=== PATIENT | female | born 1945 | race Caucasian/White ===

== ENCOUNTER 2017-05-21 16:02 | Emergency (ER) | payer OTHER ==
[~2017-05-21] VITALS: Ht 144.8 cm; Wt 92.5 kg
[~2017-05-21 16:02] MED LIST: ACTOS15 MG PO; ASPIRIN81 M2 PO; CITALOPRAM HBR20 M1 PO; GLIPIZIDE5 M1 PO; NORTRIPTYLINE H25 MG PO; PREVACID30 MG PO; QUINAPRIL HCL40 MG PO; SIMVASTATIN80 M1 PO
[2017-05-21 16:27] LABS: BASOPHIL (%) 0.5 % (0-1); BASOPHIL COUNT 0.1 K/uL (0-0.1); EOSINOPHIL (%) 1.6 % (0-5); EOSINOPHIL COUNT 0.2 K/uL (0-0.3); HEMATOCRIT 43.6 % (36.0-46.0); HEMOGLOBIN 14.2 G/DL (11.9-15.5); IMMATURE GRANULOCYTE (%) 0.5 % (0.0-0.7); LYMPHOCYTE (%) 17.7 % (15-42); LYMPHOCYTE COUNT 1.7 K/uL (1.0-2.8); MCH 27.7 PG (29.0-34.0); MCHC 32.6 G/DL (30.0-36.0); MONOCYTE (%) 6.8 % (3-12); MONOCYTE COUNT 0.6 K/uL (0-0.8); NEUTROPHIL (%) 72.9 % (45-76); NEUTROPHIL COUNT 6.9 K/uL (1.8-6.4); PLATELET COUNT 264 K/uL (156-360); RBC DIS.WIDTH-SD 43.7 % (39-53); RED BLOOD COUNT 5.13 M/uL (3.80-5.20); WHITE BLOOD COUNT 9.4 K/uL (4.1-10.2)
[2017-05-21 16:34] LABS: ALBUMIN 3.7 g/dL (3.2-4.8); CHLORIDE 102 mEq/L (99-109); POTASSIUM 4.2 mEq/L (3.7-5.4); SODIUM 137 mEq/L (136-147)
[2017-05-21 16:35] LABS: MAGNESIUM 1.8 mg/dL (1.3-2.7)
[2017-05-21 16:37] LABS: GLUCOSE 180 mg/dL (70-99); TOTAL PROTEIN 6.3 g/dL (6.4-8.3)
[2017-05-21 16:39] LABS: TOTAL BILIRUBIN 0.5 mg/dL (0.0-1.0)
[2017-05-21 16:40] LABS: ALKALINE PHOSPHATASE 89 IU/L (3-129); CREATININE 1.1 mg/dL (0.6-1.3); GFR ESTIMATE (CALCULATED) 52 mL/min/
[2017-05-21 16:41] LABS: UREA NITROGEN (BUN) 15 mg/dL (9-23)
[2017-05-21 16:42] LABS: AST (GOT) 18 IU/L (2-34)
[2017-05-21 16:43] LABS: ALT (GPT) 19 IU/L (3-49)
[2017-05-21 17:01] LABS: APPEARANCE CLEAR ((CLEAR)); BILIRUBIN NEGATIVE; BLOOD NEGATIVE; COLOR AMBER ((YELLOW)); GLUCOSE (STRIP) NEGATIVE; KETONES NEGATIVE; LEUKOCYTES NEGATIVE; NITRITE NEGATIVE; PROTEIN (STRIP) NEGATIVE; SPECIFIC GRAVITY 1.014 (1.000-1.030); UCUL ADDED? NO
[2017-05-21 18:31] VITALS: BP 128/88
== END 2017-05-21 18:32 | disposition home or self-care (01) ==
LOC: EME 16:02
PROVIDERS: Emergency Medicine
DX: R10.33 Periumbilical pain (principal); R11.0 Nausea; R25.1 Tremor, unspecified; I10 Essential (primary) hypertension; E78.5 Hyperlipidemia, unspecified; E11.9 Type 2 diabetes mellitus without complications; Z79.84 Long term (current) use of oral hypoglycemic drugs; Z79.82 Long term (current) use of aspirin
CPT/HCPCS: 80053; 81003; 83605; 83735; 85025; 99281; 99284

== ENCOUNTER 2017-06-23 17:08 | Emergency (ER) | payer OTHER ==
[~2017-06-23] VITALS: Ht 149.9 cm; Wt 94.4 kg
[2017-06-23] MEDS ORDERED: ULTRAM50 MG PO (20:44)
[2017-06-23 21:05] VITALS: BP 122/65
== END 2017-06-23 21:06 | disposition home or self-care (01) ==
LOC: EME 17:08
DX: M25.571 Pain in right ankle and joints of right foot (principal); G89.29 Other chronic pain; I10 Essential (primary) hypertension; E78.5 Hyperlipidemia, unspecified; E11.9 Type 2 diabetes mellitus without complications; Z79.84 Long term (current) use of oral hypoglycemic drugs; Z79.82 Long term (current) use of aspirin
CPT/HCPCS: 73564; 99281; 99284